=== PATIENT | male | born 1940 | race African-American/Black ===

== ENCOUNTER → 2019-12-18 11:30 | Day surgery (SDC) | payer MEDICARE, MEDICAID ==
--- NOTE | 2019-12-06 09:17 | HP ---
CC: Dr. Piero Yuan; Dr. Daniel Mckeon* UROLOGY PREOPERATIVE HISTORY AND PHYSICAL: DATE OF PLANNED ADMISSION AND SURGERY: 12/18/19 Please refer to the detailed history and physical by Dr. Yuan for this patient's admission scheduled on 12/18/19. This is the urology preoperative note. HISTORY OF PRESENT ILLNESS: Mr. Zaldivar is a 79-year-old male who is admitted by Dr. Yuan for right inguinal hernia repair and who has a symptomatic Left spermatocele, and will be undergoing a left spermatocelectomy at the same time by myself. The history and physical is dictated by Dr. Yuan's service. I have been following Mr. Zaldivar for many years because of an element of prostate enlargement and moderate PSA elevation. In 2007, because of a PSA of 6.4, he had a prostate biopsy, which was negative. He has been followed with periodic PSA's and they have been stable between 3 and 4. Rectal examination continued to show a moderately enlarged, but non-suspicious prostate. Over the last several years, he was noted to have a progressive enlargement of the left hemiscrotum. This was diagnosed as being secondary to a left spermatocele. It remained relatively stable and minimally symptomatic over the last 6 or 7 years until recently it became larger and symptomatic and started interfering with his physical activities. There is no history of any inguinal or scrotal trauma or surgery. The patient also developed an enlarging right inguinal hernia. The patient was evaluated by Dr. Yuan who scheduled him for right inguinal hernia repair. Because of the enlarging and symptomatic left spermatocele, left spermatocelectomy will be performed at the same time. PAST HISTORY: Otherwise negative. PAST MEDICAL HISTORY: As outlined in Dr. Yuan's note. The patient is hypertensive, maintained on lisinopril and on amlodipine. He is on simvastatin. ALLERGIES: He denies any allergies to medications. FAMILY HISTORY: Negative for prostate carcinoma. PHYSICAL EXAMINATION: GENERAL: He is a pleasant and healthy looking male. VITAL SIGNS: Blood pressure 120/80, pulse of 66. ABDOMEN: Exam of the abdomen is normal. He has no CVA tenderness. EXTERNAL GENITALIA: He has 12 cm left trans-illuminating scrotal swelling, consistent with either spermatocele or hydrocele. There is no left inguinal hernia noted. He has an indirect moderate size right inguinal hernia. RECTAL examination showed moderately enlarged, but non-suspicious prostate. IMPRESSION: 1. Right inguinal hernia. 2. Large left spermatocele/hydrocele. PLAN: Plan is for right inguinal hernia repair by Dr. Yuan and left spermatocelectomy by myself. I discussed the plan for spermatocelectomy with the patient. He understands that it is very common to have left scrotal enlargement for several weeks after the surgery. Some of the potential complications including hematoma and infection were discussed. All his questions were answered. [id number]/[facility] #: [id number] [facility]
[~2019-12-18 11:30] MED LIST: Buffered Lidocaine 1% SYRIN* 1 ML/SYRINGE INTRADERM ONE; Bupivacaine 0.25% SDV PF* 10 ML VIAL INJ ONE; Bupivacaine 0.5%* 50 ML MDV VIAL ONE; DiMENhydriNATE IV* 50 MG/ML VIAL IV PUSH PRN; EPHEDrine (Pressors)* 50 MG/ML VIAL ONE; Glycopyrrolate IV* 0.2 MG/ML 1 ML VIAL ONE; Lactated Ringers 1000 ML Bag* 1,000 ML IV SCH; Lidocaine 1% INJ* 10 MG/ML 30 ML SDV ONE; Lidocaine 1% w EPI 1:200,000* SDV 30 ML VIAL ONE; Lidocaine 2% PF * 5 ML VIAL ONE; Metoprolol Tartrate IV* 1 MG/ML 5 ML VIAL ONE; Naloxone* 0.4 MG/ML 1 ML VIAL IV PRN; Neostigmine Methylsulfate* 3 MG/3 ML SYRINGE ONE; Ondansetron INJ* 2 MG/ML VIAL ONE; Propofol* 10 MG/ML 20 ML BTL ONE; Rocuronium* 10 MG/ML VIAL ONE; ceFAZolin 2 GM PREMIX in ORs 2 GM/50 ML BAG ONE; fentaNYL* 50 MCG/ML 2 ML VIAL (100 MCG VIAL) IV PRN; fentaNYL* 50 MCG/ML 2 ML VIAL (100 MCG VIAL) ONE
--- NOTE | 2019-12-18 16:01 | OP ---
CC: Dr. Daniel Mckeon; Piero Yuan MD * DATE OF OPERATION: 12/18/19 - [facility] DATE OF : 40 SURGEON: Evert Mcghee MD RIGHT OF WAY CUTTER: Piero Yuan MD ANESTHESIOLOGIST: Dr. Gallegos. ANESTHESIA: General. PRE-OP DIAGNOSIS: Left spermatocele. POST-OP DIAGNOSIS: Left spermatocele. OPERATIVE PROCEDURE: Left spermatocelectomy. INDICATION FOR PROCEDURE: Mr. Zaldivar is a 79-year-old male who had a long history of left scrotal enlargement, which was diagnosed as a left spermatocele. The size of the spermatocele has recently gotten significantly larger, became more symptomatic interfering with his physical activities. Because of that finding, the symptomatic nature and the size of the spermatocele , surgical excision was advised and accepted. The patient also had a symptomatic direct right inguinal hernia. He will undergo a right inguinal herniorrhaphy by Dr. Yuan at the same time. Dr. Yuan will be dictating the operative note for the right inguinal herniorrhaphy. OPERATIVE FINDINGS: Exam under anesthesia again confirmed the presence of a 12 cm cystic mass in the left hemiscrotum. Upon left scrotal exploration, there was no hydrocele. There was a 12 cm left spermatocele. The spermatocele was arising from the globus major of the left epididymis. There was no inguinal hernia noted and no other pathology noted. The testicle was relatively small, there were no testicular masses. DESCRIPTION OF PROCEDURE: After successful general anesthesia, the patient was placed in the supine position and was prepped and draped for a left scrotal incision. A transverse incision was carried in the mid anterior left hemiscrotum. The incision was then deepened into the dartos muscle. The tunica vaginalis was identified and was dissected from the overlying scrotal wall and delivered through the incision. The tunica vaginalis was then opened and the spermatocele was identified. The spermatic cord structures were also identified and were carefully dissected, retracted, and preserved. The spermatocele was then dissected all the way to its origin from the epididymis. This was performed without rupturing the spermatocele. At that level, the connection between the epididymis and the spermatocele was tied with 4-0 Vicryl and the specimen was excised intact and sent for pathology. Careful hemostasis was then achieved. The tunica vaginalis was then everted and approximated to itself using running locking sutures of 4-0 Vicryl. After making sure there was very good hemostasis, the testis was replaced in the scrotal cavity. A Angelita drain was left in the scrotal cavity and brought out through a separate stab wound incision in the lower scrotum. The incision was then closed using running 4-0 Vicryl for the dartos muscle and the skin was closed using interrupted everting sutures of 4-0 chromic. A total of 10 cc of 0.5% Marcaine without epinephrine was used to infiltrate the incision for postoperative analgesia. The patient tolerated this procedure well. The blood loss was negligible. The specimen was left spermatocele and all the counts were correct. Dr. Yuan then proceeded with the right inguinal hernia repair and he will be dictating the operative report for that procedure. [id number]/[facility] #: [id number] [facility]
--- NOTE | 2019-12-18 16:19 | OP ---
Operative Report - Blank - Operative Report Date of Operation: 12/18/19 Note: OPERATIVE REPORT Pre-op: Right inguinal hernia Post-Op: Right direct inguinal hernia Procedure:Open repair with mesh of right direct inguinal hernia Surgeon: MD Lissy Asst: PRIMITIVO Garduno Anes: general with local , Dr. Mandujano and Dr. Gallegos IVF:1 l crystalloid EBL:min Specimen: none Drain: none Wound: 1 Findings: Right direct inguinal hernia To PACU
[2019-12-18 18:07] VITALS: BP 148/68
--- NOTE | 2019-12-18 20:25 | OP ---
CC: Dr. Evert Mcghee; Dr. Daniel Mckeon, [facility] * DATE OF OPERATION: 12/18/19 - [facility] DATE OF : 40 SURGEON: Piero Yuan MD FILTER BED PLACER: PRIMITIVO Lerma ANESTHESIOLOGISTS: Dr. Mandujano, as well as Dr. Gallegos. ANESTHESIA: General with local. PRE-OP DIAGNOSIS: Right inguinal hernia. POST-OP DIAGNOSIS: Right direct inguinal hernia. OPERATIVE PROCEDURE: Open repair with mesh of a right direct inguinal hernia. IV FLUIDS: 1 L of crystalloid. ESTIMATED BLOOD LOSS: Minimal. SPECIMENS: None. WOUND CLASSIFICATION: 1. COMPLICATIONS: None. DRAINS: None. FINDINGS: Direct inguinal hernia. DESCRIPTION OF PROCEDURE: Written informed consent was obtained, the right groin was marked with indelible ink, and preoperative antibiotics were administered. The patient was already in the operating room from excision of a left spermatocele by Dr. Mcghee. The right groin was prepped and draped in the usual sterile fashion. Time-out verification was completed. Marcaine 0.25% mixed with 1% lidocaine was infiltrated in the right groin and an oblique incision was made several fingerbreadths above the inguinal crease and carried down to Samira's fascia. The external oblique aponeurosis was identified as well as the external ring and this was opened in the direction of its fibers. Spermatic cord was identified as well as the inguinal floor and it was encircled with 1 quarter-inch Angelita drain. Careful evaluation revealed a direct space hernia somewhat in the lateral aspect of the direct space with fat that was herniating through, but a rather well-defined defect in the transversalis fascia of about 1.5 cm. This was easily reduced and closed with a running 3-0 Vicryl suture. Careful evaluation of the spermatic cord revealed no evidence of an indirect hernia sac. There was a cord lipoma which was excised at the internal ring. I did sacrifice the iliohypogastric nerve. Once this was complete, the ProGrip pre-cut Covidien mesh was then placed and sutured to the pubic tubercle with a horizontal mattress 0 Vicryl suture. This was then placed to cover the direct and indirect space with generous overlap and care taken with no wrinkling. It was sutured to the inguinal ligament in 2 places with 0 Vicryl suture as well as the conjoint tendon with an individual 0 Vicryl suture. Hemostasis was assured. The internal ring had been reconstructed nicely. The external oblique aponeurosis was then closed with a running 3-0 Vicryl suture. Samira's fascia was closed with a running 3-0 Vicryl suture. Skin was approximated with a subcuticular 4-0 Vicryl suture. Additional Marcaine was infiltrated. Steri- Strips and sterile dressings were applied. The patient tolerated the procedure well and was taken to the recovery room in stable condition. [id number]/[facility] #: [id number] [facility]
== END | disposition home or self-care (01) ==
LOC: OR 11:30
PROVIDERS: ATTEND Surgery
DX: K40.90 Unilateral inguinal hernia, without obstruction or gangrene, not specified as recurrent (principal); N43.41 Spermatocele of epididymis, single; I25.10 Atherosclerotic heart disease of native coronary artery without angina pectoris; Z95.1 Presence of aortocoronary bypass graft; I10 Essential (primary) hypertension; M19.90 Unspecified osteoarthritis, unspecified site; G51.0 Bell's palsy
CPT/HCPCS: 88304; C1781; J0690; J2001; J2405; J2704; J2710; J3010; J3490

== ENCOUNTER 2020-12-21 08:05 | Inpatient (IN) ==
[2020-12-21] MEDS ORDERED: NS 0.9% 1000 ml BAG 1,000 ML IV ONE (08:31)
[2020-12-21] MEDS ORDERED: Iodixanol (CONTRAST) 320 MG/ML 100 ML SDV IV ONE (08:44)
[2020-12-21 09:05] LABS: Hematocrit 33 % (42-52); Hemoglobin 10.8 g/dL (14.0-18.0); Mean Corpuscular HGB Conc 33 g/dL (31-36); Mean Corpuscular Hemoglobin 33 pg (27-31); Mean Corpuscular Volume 100 fL (80-94); Platelet Count 160 10^3/uL (150-450); Red Blood Count 3.25 10^6 /uL (4.18-5.48); Red Cell Distribution Width 16 % (10-15)
[2020-12-21 09:18] LABS: Activated Partial Thrombo Time 23.5 seconds (26.0-38.0); INR 1.13 (0.82-1.09)
[2020-12-21 09:22] LABS: Albumin 3.3 g/dL (3.2-5.2); Albumin/Globulin Ratio 1.5 (1-3); Calcium 7.9 mg/dL (8.6-10.3); EGFR African American 95.8 (>60); EGFR Non-African American 79.2 (>60); Globulin 2.2 g/dL (2-4); HDL Cholesterol 36.6 mg/dL; Potassium 3.5 mmol/L (3.5-5.0); Total Bilirubin 0.9 mg/dL (0.2-1.0); Total Protein 5.5 g/dL (6.4-8.9)
[2020-12-21 09:50] LABS: Troponin I 0.01 ng/mL (<0.03)
[2020-12-21 10:07] LABS: ABS Lymphocytes 0.8 10^3/ul (1.0-4.8); ABS Monocytes 0.4 10^3/ul (0-0.8); ABS Neutrophils 0.7 10^3/ul (1.5-7.7); Eosinophil % 1.7 %; Lymphocyte % 40.4 %; Nucleated Red Blood Cells % 0.2
[2020-12-21 12:03] LABS: Folate 7.28 ng/mL (>3.99)
[2020-12-21] MEDS: Enoxaparin 40 MG/0.4 ML SYR SUBCUT SCH (12:46)
[2020-12-21] MEDS ORDERED: NS 0.9% 1000 ml BAG 1,000 ML IV SCH (15:00)
[2020-12-21 18:45] LABS: Corrected Retic Count 0.6 % (0.5-1.5); Hematocrit for Retic CNT 36 % (42-52); Immature Retic Fraction 0.43; RBC Retic Count 3.58 10^6/uL (4.18-5.48)
[2020-12-21 20:51] LABS: Uric Acid 4.6 mg/dL (4.4-7.6)
[2020-12-22 05:56] LABS: ABS Eosinophils 0.1 10^3/ul (0-0.6); ABS Monocytes 0.5 10^3/ul (0-0.8); ABS Neutrophils 1.6 10^3/ul (1.5-7.7); Eosinophil % 1.9 %; Hematocrit 37 % (42-52); Hemoglobin 12.2 g/dL (14.0-18.0); Lymphocyte % 32.4 %; Mean Corpuscular HGB Conc 33 g/dL (31-36); Mean Corpuscular Hemoglobin 33 pg (27-31); Mean Corpuscular Volume 100 fL (80-94); Mean Platelet Volume 9.3 fL (7.4-10.4); Platelet Count 170 10^3/uL (150-450); Red Blood Count 3.69 10^6 /uL (4.18-5.48); Red Cell Distribution Width 16 % (10-15); White Blood Count 3.2 10^3/uL (3.5-10.8)
[2020-12-22 06:15] LABS: BUN/Creatinine Ratio 11.4 (8-20); Calcium 8.3 mg/dL (8.6-10.3); EGFR African American 114.2 (>60); EGFR Non-African American 94.4 (>60); Potassium 3.4 mmol/L (3.5-5.0)
[2020-12-22] MEDS: Cholecalciferol (VIT D3) 1,000 unit TAB PO SCH (09:23)
[2020-12-22] MEDS: Enoxaparin 40 MG/0.4 ML SYR SUBCUT SCH (10:23)
[2020-12-23] MEDS: Cholecalciferol (VIT D3) 1,000 unit TAB PO SCH (08:33)
[2020-12-23] MEDS: Enoxaparin 40 MG/0.4 ML SYR SUBCUT SCH (10:01)
[2020-12-23 13:42] VITALS: BP 114/47
[2020-12-24 15:42] LABS: Albumin/Globulin Ratio 1.04; Total Protein(PEP) 5.8 g/dL (6.3 - 7.9)
== END 2020-12-23 13:17 | DRG 65 ==
LOC: ED 08:05 → MEDTELE 10:47 → PMRU 12-23 14:04
PROVIDERS: ADMIT Hospitalist; ATTEND Student in an Organized Health Care Education/Training Program

== ENCOUNTER 2020-12-23 13:21 | Inpatient (IN) ==
[2020-12-23] MEDS ORDERED: Senna TAB 8.6 mg TAB PO PRN (16:45)
[2020-12-24] MEDS: Cholecalciferol (VIT D3) 1,000 unit TAB PO SCH (09:52)
[2020-12-24] MEDS: Enoxaparin 40 MG/0.4 ML SYR SUBCUT SCH (09:54)
[2020-12-25 07:16] LABS: ABS Eosinophils 0.1 10^3/ul (0-0.6); ABS Lymphocytes 0.9 10^3/ul (1.0-4.8); ABS Monocytes 0.4 10^3/ul (0-0.8); ABS Neutrophils 1.1 10^3/ul (1.5-7.7); Eosinophil % 2.7 %; Hematocrit 37 % (42-52); Hemoglobin 12.7 g/dL (14.0-18.0); Mean Corpuscular HGB Conc 35 g/dL (31-36); Mean Corpuscular Hemoglobin 34 pg (27-31); Mean Corpuscular Volume 99 fL (80-94); Mean Platelet Volume 9.1 fL (7.4-10.4); Nucleated Red Blood Cells % 0.2; Platelet Count 176 10^3/uL (150-450); Red Cell Distribution Width 16 % (10-15); White Blood Count 2.6 10^3/uL (3.5-10.8)
[2020-12-25 07:32] LABS: Albumin 3.5 g/dL (3.2-5.2); Albumin/Globulin Ratio 1.3 (1-3); BUN/Creatinine Ratio 14.7 (8-20); Calcium 8.6 mg/dL (8.6-10.3); EGFR African American 92.3 (>60); EGFR Non-African American 76.3 (>60); Globulin 2.6 g/dL (2-4); Potassium 3.8 mmol/L (3.5-5.0); Total Bilirubin 1.2 mg/dL (0.2-1.0); Total Protein 6.1 g/dL (6.4-8.9)
[2020-12-25] MEDS: Enoxaparin 40 MG/0.4 ML SYR SUBCUT SCH (08:19)
[2020-12-25] MEDS: Cholecalciferol (VIT D3) 1,000 unit TAB PO SCH (08:19)
[2020-12-26] MEDS: Cholecalciferol (VIT D3) 1,000 unit TAB PO SCH (08:50)
[2020-12-26] MEDS: Enoxaparin 40 MG/0.4 ML SYR SUBCUT SCH (08:51)
[2020-12-27] MEDS: Cholecalciferol (VIT D3) 1,000 unit TAB PO SCH (09:05)
[2020-12-27] MEDS: Enoxaparin 40 MG/0.4 ML SYR SUBCUT SCH (09:05)
[2020-12-28] MEDS: Cholecalciferol (VIT D3) 1,000 unit TAB PO SCH (07:32)
[2020-12-28] MEDS: Enoxaparin 40 MG/0.4 ML SYR SUBCUT SCH (12:32)
[2020-12-29] MEDS: Cholecalciferol (VIT D3) 1,000 unit TAB PO SCH (07:47)
[2020-12-29] MEDS: Enoxaparin 40 MG/0.4 ML SYR SUBCUT SCH (11:22)
[2020-12-30] MEDS: Enoxaparin 40 MG/0.4 ML SYR SUBCUT SCH (09:31)
[2020-12-30] MEDS: Cholecalciferol (VIT D3) 1,000 unit TAB PO SCH (09:33)
[2020-12-31] MEDS: Cholecalciferol (VIT D3) 1,000 unit TAB PO SCH (10:09)
[2020-12-31] MEDS: Enoxaparin 40 MG/0.4 ML SYR SUBCUT SCH (10:09)
[2021-01-01 07:26] LABS: ABS Eosinophils 0.1 10^3/ul (0-0.6); ABS Lymphocytes 0.8 10^3/ul (1.0-4.8); ABS Monocytes 0.5 10^3/ul (0-0.8); ABS Neutrophils 1.3 10^3/ul (1.5-7.7); Eosinophil % 2.5 %; Hematocrit 36 % (42-52); Lymphocyte % 29.8 %; Mean Corpuscular HGB Conc 33 g/dL (31-36); Mean Corpuscular Hemoglobin 33 pg (27-31); Mean Corpuscular Volume 100 fL (80-94); Mean Platelet Volume 8.9 fL (7.4-10.4); Nucleated Red Blood Cells % 0.1; Platelet Count 191 10^3/uL (150-450); Red Blood Count 3.59 10^6 /uL (4.18-5.48); Red Cell Distribution Width 15 % (10-15); White Blood Count 2.7 10^3/uL (3.5-10.8)
[2021-01-01 07:43] LABS: Albumin 3.4 g/dL (3.2-5.2); Albumin/Globulin Ratio 1.5 (1-3); BUN/Creatinine Ratio 12.4 (8-20); Calcium 8.4 mg/dL (8.6-10.3); EGFR African American 99.5 (>60); EGFR Non-African American 82.2 (>60); Globulin 2.3 g/dL (2-4); Total Bilirubin 0.7 mg/dL (0.2-1.0); Total Protein 5.7 g/dL (6.4-8.9)
[2021-01-01] MEDS: Cholecalciferol (VIT D3) 1,000 unit TAB PO SCH (09:16)
[2021-01-01] MEDS: Enoxaparin 40 MG/0.4 ML SYR SUBCUT SCH (09:18)
[2021-01-02] MEDS: Enoxaparin 40 MG/0.4 ML SYR SUBCUT SCH (10:58)
[2021-01-02] MEDS: Cholecalciferol (VIT D3) 1,000 unit TAB PO SCH (10:58)
[2021-01-03] MEDS: Cholecalciferol (VIT D3) 1,000 unit TAB PO SCH (09:36)
[2021-01-03] MEDS: Enoxaparin 40 MG/0.4 ML SYR SUBCUT SCH (09:37)
[2021-01-04] MEDS: Cholecalciferol (VIT D3) 1,000 unit TAB PO SCH (07:46)
[2021-01-04] MEDS: Enoxaparin 40 MG/0.4 ML SYR SUBCUT SCH (10:13)
[2021-01-05] MEDS: Cholecalciferol (VIT D3) 1,000 unit TAB PO SCH (10:06)
[2021-01-05] MEDS: Enoxaparin 40 MG/0.4 ML SYR SUBCUT SCH (10:12)
[2021-01-06] MEDS: Cholecalciferol (VIT D3) 1,000 unit TAB PO SCH (08:10)
[2021-01-06] MEDS: Enoxaparin 40 MG/0.4 ML SYR SUBCUT SCH (10:55)
[2021-01-07] MEDS: Enoxaparin 40 MG/0.4 ML SYR SUBCUT SCH (09:49)
[2021-01-07] MEDS: Cholecalciferol (VIT D3) 1,000 unit TAB PO SCH (09:49)
[2021-01-08 06:32] LABS: ABS Eosinophils 0.1 10^3/ul (0-0.6); ABS Lymphocytes 1.1 10^3/ul (1.0-4.8); ABS Monocytes 0.5 10^3/ul (0-0.8); ABS Neutrophils 1.4 10^3/ul (1.5-7.7); Eosinophil % 2.7 %; Hematocrit 35 % (42-52); Hemoglobin 11.8 g/dL (14.0-18.0); Lymphocyte % 35.6 %; Mean Corpuscular HGB Conc 34 g/dL (31-36); Mean Corpuscular Hemoglobin 34 pg (27-31); Mean Corpuscular Volume 99 fL (80-94); Mean Platelet Volume 9.1 fL (7.4-10.4); Nucleated Red Blood Cells % 0.1; Platelet Count 184 10^3/uL (150-450); Red Cell Distribution Width 15 % (10-15)
[2021-01-08 06:43] LABS: Albumin 3.3 g/dL (3.2-5.2); Albumin/Globulin Ratio 1.4 (1-3); BUN/Creatinine Ratio 13.3 (8-20); Calcium 8.4 mg/dL (8.6-10.3); EGFR African American 98.2 (>60); EGFR Non-African American 81.2 (>60); Globulin 2.3 g/dL (2-4); Potassium 3.9 mmol/L (3.5-5.0); Total Bilirubin 0.7 mg/dL (0.2-1.0); Total Protein 5.6 g/dL (6.4-8.9)
[2021-01-08] MEDS: Cholecalciferol (VIT D3) 1,000 unit TAB PO SCH (08:39)
[2021-01-08] MEDS: Enoxaparin 40 MG/0.4 ML SYR SUBCUT SCH (08:53)
[2021-01-09] MEDS: Cholecalciferol (VIT D3) 1,000 unit TAB PO SCH (09:05)
[2021-01-09] MEDS: Enoxaparin 40 MG/0.4 ML SYR SUBCUT SCH (09:06)
[2021-01-10] MEDS: Enoxaparin 40 MG/0.4 ML SYR SUBCUT SCH (09:18)
[2021-01-10] MEDS: Cholecalciferol (VIT D3) 1,000 unit TAB PO SCH (09:19)
[2021-01-10 14:02] LABS: Urine Appearance Clear; Urine Bilirubin Negative (Negative); Urine Blood Negative (Negative); Urine Color Yellow; Urine Glucose Negative (Negative); Urine Ketones Negative (Negative); Urine Nitrite Negative (Negative); Urine Protein Negative (Negative); Urine Urobilinogen Negative (Negative)
[2021-01-11 06:32] LABS: BUN/Creatinine Ratio 13.5 (8-20); Calcium 8.6 mg/dL (8.6-10.3); EGFR African American 83.1 (>60); EGFR Non-African American 68.7 (>60); Potassium 4.2 mmol/L (3.5-5.0)
[2021-01-11] MEDS: Enoxaparin 40 MG/0.4 ML SYR SUBCUT SCH (10:08)
[2021-01-11] MEDS: Cholecalciferol (VIT D3) 1,000 unit TAB PO SCH (10:08)
[2021-01-12] MEDS: Cholecalciferol (VIT D3) 1,000 unit TAB PO SCH (08:55)
[2021-01-12] MEDS: Enoxaparin 40 MG/0.4 ML SYR SUBCUT SCH (08:56)
[2021-01-13] MEDS: Cholecalciferol (VIT D3) 1,000 unit TAB PO SCH (09:08)
[2021-01-13] MEDS: Enoxaparin 40 MG/0.4 ML SYR SUBCUT SCH (09:08)
[2021-01-14] MEDS: Cholecalciferol (VIT D3) 1,000 unit TAB PO SCH (09:43)
[2021-01-14] MEDS: Enoxaparin 40 MG/0.4 ML SYR SUBCUT SCH (09:44)
[2021-01-15] MEDS: Cholecalciferol (VIT D3) 1,000 unit TAB PO SCH (07:31)
[2021-01-15 08:12] LABS: Hematocrit 39 % (42-52); Hemoglobin 13.1 g/dL (14.0-18.0); Mean Corpuscular HGB Conc 33 g/dL (31-36); Mean Corpuscular Hemoglobin 33 pg (27-31); Mean Corpuscular Volume 100 fL (80-94); Mean Platelet Volume 9.1 fL (7.4-10.4); Platelet Count 209 10^3/uL (150-450); Red Blood Count 3.94 10^6 /uL (4.18-5.48); Red Cell Distribution Width 15 % (10-15); White Blood Count 2.4 10^3/uL (3.5-10.8)
[2021-01-15 08:20] LABS: ABS Neutrophils 0.9 10^3/ul (1.5-7.7)
[2021-01-15 08:24] LABS: Albumin 3.8 g/dL (3.2-5.2); Albumin/Globulin Ratio 1.4 (1-3); BUN/Creatinine Ratio 11.8 (8-20); Calcium 9.2 mg/dL (8.6-10.3); EGFR African American 94.6 (>60); EGFR Non-African American 78.2 (>60); Globulin 2.7 g/dL (2-4); Potassium 3.9 mmol/L (3.5-5.0); Total Protein 6.5 g/dL (6.4-8.9)
[2021-01-15 09:28] LABS: ABS Eosinophils 0.1 10^3/ul (0-0.6); ABS Lymphocytes 0.9 10^3/ul (1.0-4.8); ABS Monocytes 0.5 10^3/ul (0-0.8); Lymphocyte % 38.4 %; Nucleated Red Blood Cells % 0.1
[2021-01-15] MEDS: Enoxaparin 40 MG/0.4 ML SYR SUBCUT SCH (11:13)
[2021-01-16] MEDS: Cholecalciferol (VIT D3) 1,000 unit TAB PO SCH (09:40)
[2021-01-16] MEDS: Enoxaparin 40 MG/0.4 ML SYR SUBCUT SCH (09:40)
[2021-01-17 06:34] LABS: ABS Eosinophils 0.1 10^3/ul (0-0.6); ABS Monocytes 0.5 10^3/ul (0-0.8); ABS Neutrophils 1.1 10^3/ul (1.5-7.7); Eosinophil % 2.7 %; Hematocrit 35 % (42-52); Hemoglobin 11.8 g/dL (14.0-18.0); Lymphocyte % 37.4 %; Mean Corpuscular HGB Conc 34 g/dL (31-36); Mean Corpuscular Hemoglobin 34 pg (27-31); Mean Corpuscular Volume 99 fL (80-94); Nucleated Red Blood Cells % 0.1; Platelet Count 181 10^3/uL (150-450); Red Blood Count 3.51 10^6 /uL (4.18-5.48); Red Cell Distribution Width 15 % (10-15); White Blood Count 2.8 10^3/uL (3.5-10.8)
[2021-01-17] MEDS: Cholecalciferol (VIT D3) 1,000 unit TAB PO SCH (09:36)
[2021-01-17] MEDS: Enoxaparin 40 MG/0.4 ML SYR SUBCUT SCH (09:40)
[2021-01-18] MEDS: Enoxaparin 40 MG/0.4 ML SYR SUBCUT SCH (09:35)
[2021-01-18] MEDS: Cholecalciferol (VIT D3) 1,000 unit TAB PO SCH (09:35)
[2021-01-19] MEDS: Cholecalciferol (VIT D3) 1,000 unit TAB PO SCH (08:36)
[2021-01-19] MEDS: Enoxaparin 40 MG/0.4 ML SYR SUBCUT SCH (08:37)
[2021-01-20] MEDS: Cholecalciferol (VIT D3) 1,000 unit TAB PO SCH (08:45)
[2021-01-20] MEDS: Enoxaparin 40 MG/0.4 ML SYR SUBCUT SCH (08:46)
[2021-01-21] MEDS: Cholecalciferol (VIT D3) 1,000 unit TAB PO SCH (10:27)
[2021-01-21] MEDS: Enoxaparin 40 MG/0.4 ML SYR SUBCUT SCH (10:45)
[2021-01-22 05:54] LABS: Hematocrit 37 % (42-52); Hemoglobin 12.1 g/dL (14.0-18.0); Mean Corpuscular HGB Conc 33 g/dL (31-36); Mean Corpuscular Hemoglobin 33 pg (27-31); Mean Corpuscular Volume 100 fL (80-94); Mean Platelet Volume 9.1 fL (7.4-10.4); Platelet Count 179 10^3/uL (150-450); Red Blood Count 3.64 10^6 /uL (4.18-5.48); Red Cell Distribution Width 15 % (10-15); White Blood Count 2.3 10^3/uL (3.5-10.8)
[2021-01-22 06:12] VITALS: BP 149/81
[2021-01-22 06:14] LABS: Albumin 3.4 g/dL (3.2-5.2); Albumin/Globulin Ratio 1.4 (1-3); Calcium 8.6 mg/dL (8.6-10.3); EGFR African American 99.5 (>60); EGFR Non-African American 82.2 (>60); Globulin 2.5 g/dL (2-4); Potassium 3.7 mmol/L (3.5-5.0); Total Bilirubin 0.8 mg/dL (0.2-1.0); Total Protein 5.9 g/dL (6.4-8.9)
[2021-01-22 09:00] LABS: ABS Eosinophils 0.1 10^3/ul (0-0.6); ABS Monocytes 0.5 10^3/ul (0-0.8); ABS Neutrophils 0.7 10^3/ul (1.5-7.7); Eosinophil % 3.4 %; Lymphocyte % 42.2 %
[2021-01-22] MEDS: Cholecalciferol (VIT D3) 1,000 unit TAB PO SCH (09:24)
== END 2021-01-22 12:05 | disposition home health service (06) | DRG 57 ==
LOC: PMRU 14:55
PROVIDERS: ADMIT Physical Medicine & Rehabilitation; ATTEND Physical Medicine & Rehabilitation

== ENCOUNTER 2021-07-10 12:27 | Inpatient (IN) ==
[2021-07-10 15:59] LABS: Hematocrit 39 % (42-52); Mean Corpuscular HGB Conc 34 g/dL (31-36); Mean Corpuscular Hemoglobin 34 pg (27-31); Mean Corpuscular Volume 101 fL (80-94); Red Blood Count 3.81 10^6 /uL (4.18-5.48); Red Cell Distribution Width 16 % (10-15); White Blood Count 5.8 10^3/uL (3.5-10.8)
[2021-07-10 16:04] LABS: Activated Partial Thrombo Time 22.2 seconds (26.0-38.0); INR 1.04 (0.86-1.15)
[2021-07-10 16:15] LABS: ABS Monocytes 0.3 10^3/ul (0-0.8); ABS Neutrophils 4.4 10^3/ul (1.5-7.7); Eosinophil % 0.6 %; Lymphocyte % 17.7 %; Mean Platelet Volume 9.8 fL (7.4-10.4); Nucleated Red Blood Cells % 0.1; Platelet Count 177 10^3/uL (150-450)
[2021-07-10 16:19] LABS: ALT 20 U/L (7-52); Albumin 4.5 g/dL (3.2-5.2); Albumin/Globulin Ratio 1.6 (1-3); Alkaline Phosphatase 63 U/L (35-149); Blood Urea Nitrogen 9 mg/dL (6-24); CO2 Carbon Dioxide 28 mmol/L (22-32); Calcium 9.1 mg/dL (8.6-10.3); Chloride 104 mmol/L (101-111); Globulin 2.9 g/dL (2-4); Glucose 91 mg/dL (70-100); Sodium 140 mmol/L (135-145); Total Protein 7.4 g/dL (6.4-8.9)
[2021-07-10 16:20] LABS: Troponin I 0.01 ng/mL (<0.03)
[2021-07-10 16:40] LABS: Anion Gap 8 mmol/L (2-11)
[2021-07-10] MEDS ORDERED: Morphine 2 MG/ML SYRINGE IV SCH (18:00)
[2021-07-10] MEDS ORDERED: Morphine 2 MG/ML SYRINGE IV PRN (18:24)
[2021-07-10 19:04] LABS: Rapid COVID-19 Molecular Undetected (Undetected)
[2021-07-10 19:28] LABS: Urine Appearance Clear; Urine Bilirubin Negative (Negative); Urine Blood Negative (Negative); Urine Color Yellow; Urine Glucose Negative (Negative); Urine Ketones 1+ (Negative); Urine Nitrite Negative (Negative); Urine Protein Negative (Negative); Urine Specific Gravity 1.013 (1.002-1.030); Urine Urobilinogen Positive (Negative)
[2021-07-10] MEDS: Heparin 5000 UNITS/ML 1 mL VIAL SUBCUT SCH (23:02)
[2021-07-11] MEDS: Heparin 5000 UNITS/ML 1 mL VIAL SUBCUT SCH (05:13)
[2021-07-11] MEDS ORDERED: Lidocaine 1% w EPI 1:100,000 MDV 20 ML VIAL ONE (07:32)
[2021-07-11] MEDS ORDERED: Propofol 10 MG/ML 20 ML BTL ONE (08:23)
[2021-07-11] MEDS ORDERED: Phenylephrine IV 10 MG/ML 1 ml VIAL ONE (08:23)
[2021-07-11] MEDS ORDERED: Rocuronium 50 mg VIAL 10 mg/ml 5 ml VIAL (50 mg) ONE ×2 (08:26→09:18)
[2021-07-11] MEDS ORDERED: fentaNYL 100 mcg/2 ml 50 MCG/ML VIAL ONE ×2 (08:26→09:17)
[2021-07-11] MEDS ORDERED: ceFAZolin VIAL 2 GM in NS 0.9% 100 ml BAG 100 ML IVPB ONE (08:37)
[2021-07-11] MEDS ORDERED: ceFAZolin VIAL VIAL ONE (09:19)
[2021-07-11] MEDS ORDERED: HYDROcodone/ACETAMIN 5/325 mg TAB PO PRN ×2 (12:13)
[2021-07-11] MEDS ORDERED: Senna TAB 8.6 mg TAB PO PRN (12:48)
[2021-07-11] MEDS ORDERED: Magnesium Hydroxide LIQ 30 ML UDC PO PRN (12:48)
[2021-07-11 13:00] LABS: AST Redraw 17 U/L (13-39); Potassium Redraw 3.7 mmol/L (3.5-5.0)
[2021-07-11] MEDS: Cholecalciferol (VIT D3) 400 units TAB PO SCH (13:54)
[2021-07-11 13:55] LABS: Vitamin B12 > 1450 pg/mL (180-914)
[2021-07-11] MEDS: ceFAZolin 1 GM X 3 DOSES POST-OP Q8H (AddVan) IVPB SCH (16:49)
[2021-07-12] MEDS: ceFAZolin 1 GM X 3 DOSES POST-OP Q8H (AddVan) IVPB SCH ×2 (02:01→10:52)
[2021-07-12 04:46] LABS: ABS Eosinophils 0.1 10^3/ul (0-0.6); ABS Lymphocytes 0.5 10^3/ul (1.0-4.8); ABS Monocytes 0.4 10^3/ul (0-0.8); ABS Neutrophils 3.5 10^3/ul (1.5-7.7); Eosinophil % 2.6 %; Hematocrit 28 % (42-52); Hemoglobin 9.4 g/dL (14.0-18.0); Lymphocyte % 10.3 %; Mean Corpuscular HGB Conc 34 g/dL (31-36); Mean Corpuscular Hemoglobin 34 pg (27-31); Mean Corpuscular Volume 101 fL (80-94); Mean Platelet Volume 9.2 fL (7.4-10.4); Nucleated Red Blood Cells % 0.1; Platelet Count 107 10^3/uL (150-450); Red Blood Count 2.74 10^6 /uL (4.18-5.48); Red Cell Distribution Width 16 % (10-15); White Blood Count 4.6 10^3/uL (3.5-10.8)
[2021-07-12 05:03] LABS: Calcium 7.8 mg/dL (8.6-10.3); Magnesium 1.9 mg/dL (1.9-2.7); Potassium 3.7 mmol/L (3.5-5.0)
[2021-07-12] MEDS: Cholecalciferol (VIT D3) 400 units TAB PO SCH (10:51)
[2021-07-12] MEDS: Enoxaparin 30 MG/0.3 ML SYR SUBCUT SCH (10:53)
[2021-07-12 11:07] LABS: Vitamin D Total 25(OH) 54.2 ng/mL (20-50)
[2021-07-12 16:11] LABS: Calcium 7.9 mg/dL (8.6-10.3); Potassium 3.7 mmol/L (3.5-5.0)
[2021-07-13 05:34] LABS: ABS Eosinophils 0.2 10^3/ul (0-0.6); ABS Lymphocytes 0.6 10^3/ul (1.0-4.8); ABS Monocytes 0.5 10^3/ul (0-0.8); ABS Neutrophils 2.2 10^3/ul (1.5-7.7); Eosinophil % 4.3 %; Hematocrit 27 % (42-52); Lymphocyte % 16.3 %; Mean Corpuscular HGB Conc 34 g/dL (31-36); Mean Corpuscular Hemoglobin 34 pg (27-31); Mean Corpuscular Volume 100 fL (80-94); Mean Platelet Volume 9.9 fL (7.4-10.4); Platelet Count 110 10^3/uL (150-450); Red Blood Count 2.65 10^6 /uL (4.18-5.48); Red Cell Distribution Width 16 % (10-15); White Blood Count 3.5 10^3/uL (3.5-10.8)
[2021-07-13 05:53] LABS: Calcium 8.1 mg/dL (8.6-10.3); Potassium 3.8 mmol/L (3.5-5.0)
[2021-07-13 08:05] VITALS: BP 126/69
[2021-07-13] MEDS: Cholecalciferol (VIT D3) 400 units TAB PO SCH (08:32)
[2021-07-13] MEDS: Enoxaparin 30 MG/0.3 ML SYR SUBCUT SCH (08:34)
== END 2021-07-13 09:20 | DRG 481 ==
LOC: ED 12:27 → SSU 19:31 → SUATTDRO 19:31 → SSU 19:39
PROVIDERS: ADMIT Internal Medicine; ATTEND Internal Medicine

== ENCOUNTER 2021-07-13 07:30 | Inpatient (IN) ==
[2021-07-13] MEDS ORDERED: Magnesium Hydroxide LIQ 30 ML UDC PO PRN (11:55)
[2021-07-13] MEDS ORDERED: Senna TAB 8.6 mg TAB PO PRN (11:55)
[2021-07-13] MEDS ORDERED: HYDROcodone/ACETAMIN 5/325 mg TAB PO PRN (12:08)
[2021-07-14 07:16] LABS: ABS Eosinophils 0.2 10^3/ul (0-0.6); ABS Lymphocytes 0.6 10^3/ul (1.0-4.8); ABS Monocytes 0.5 10^3/ul (0-0.8); ABS Neutrophils 1.8 10^3/ul (1.5-7.7); Eosinophil % 5.5 %; Hematocrit 26 % (42-52); Hemoglobin 8.9 g/dL (14.0-18.0); Mean Corpuscular HGB Conc 35 g/dL (31-36); Mean Corpuscular Hemoglobin 35 pg (27-31); Mean Corpuscular Volume 100 fL (80-94); Mean Platelet Volume 9.6 fL (7.4-10.4); Nucleated Red Blood Cells % 0.1; Platelet Count 129 10^3/uL (150-450); Red Blood Count 2.56 10^6 /uL (4.18-5.48); Red Cell Distribution Width 15 % (10-15)
[2021-07-14 07:32] LABS: Albumin/Globulin Ratio 1.2 (1-3); Calcium 8.3 mg/dL (8.6-10.3); Globulin 2.6 g/dL (2-4); Potassium 3.8 mmol/L (3.5-5.0); Total Bilirubin 1.1 mg/dL (0.2-1.0); Total Protein 5.6 g/dL (6.4-8.9)
[2021-07-14] MEDS: Cholecalciferol (VIT D3) 1,000 unit TAB PO SCH (08:06)
[2021-07-14] MEDS: Enoxaparin 30 MG/0.3 ML SYR SUBCUT SCH (08:07)
[2021-07-15] MEDS: Cholecalciferol (VIT D3) 1,000 unit TAB PO SCH (08:37)
[2021-07-15] MEDS: Aspirin EC 81 mg TAB.EC (enteric coated) PO SCH (08:37)
[2021-07-15] MEDS: Enoxaparin 30 MG/0.3 ML SYR SUBCUT SCH (08:40)
[2021-07-16] MEDS: Enoxaparin 30 MG/0.3 ML SYR SUBCUT SCH (08:17)
[2021-07-16] MEDS: Aspirin EC 81 mg TAB.EC (enteric coated) PO SCH (08:19)
[2021-07-16] MEDS: Cholecalciferol (VIT D3) 1,000 unit TAB PO SCH (08:19)
[2021-07-17] MEDS: Enoxaparin 30 MG/0.3 ML SYR SUBCUT SCH (08:56)
[2021-07-17] MEDS: Cholecalciferol (VIT D3) 1,000 unit TAB PO SCH (08:56)
[2021-07-17] MEDS: Aspirin EC 81 mg TAB.EC (enteric coated) PO SCH (08:56)
[2021-07-18] MEDS: Aspirin EC 81 mg TAB.EC (enteric coated) PO SCH (08:55)
[2021-07-18] MEDS: Cholecalciferol (VIT D3) 1,000 unit TAB PO SCH (08:55)
[2021-07-18] MEDS: Enoxaparin 30 MG/0.3 ML SYR SUBCUT SCH (08:56)
[2021-07-19] MEDS: Enoxaparin 30 MG/0.3 ML SYR SUBCUT SCH (08:40)
[2021-07-19] MEDS: Aspirin EC 81 mg TAB.EC (enteric coated) PO SCH (08:40)
[2021-07-19] MEDS: Cholecalciferol (VIT D3) 1,000 unit TAB PO SCH (08:40)
[2021-07-20] MEDS: Aspirin EC 81 mg TAB.EC (enteric coated) PO SCH (08:18)
[2021-07-20] MEDS: Enoxaparin 30 MG/0.3 ML SYR SUBCUT SCH (08:18)
[2021-07-20] MEDS: Cholecalciferol (VIT D3) 1,000 unit TAB PO SCH (08:18)
[2021-07-21 07:26] LABS: ABS Eosinophils 0.1 10^3/ul (0-0.6); ABS Lymphocytes 0.8 10^3/ul (1.0-4.8); ABS Monocytes 0.6 10^3/ul (0-0.8); ABS Neutrophils 2.2 10^3/ul (1.5-7.7); Eosinophil % 2.3 %; Hematocrit 26 % (42-52); Hemoglobin 8.8 g/dL (14.0-18.0); Lymphocyte % 22.2 %; Mean Corpuscular HGB Conc 34 g/dL (31-36); Mean Corpuscular Hemoglobin 34 pg (27-31); Mean Corpuscular Volume 101 fL (80-94); Mean Platelet Volume 8.3 fL (7.4-10.4); Nucleated Red Blood Cells % 0.1; Platelet Count 316 10^3/uL (150-450); Red Blood Count 2.58 10^6 /uL (4.18-5.48); Red Cell Distribution Width 16 % (10-15); White Blood Count 3.8 10^3/uL (3.5-10.8)
[2021-07-21 07:46] LABS: Albumin 3.2 g/dL (3.2-5.2); Albumin/Globulin Ratio 1.3 (1-3); Calcium 8.4 mg/dL (8.6-10.3); Globulin 2.5 g/dL (2-4); Potassium 4.1 mmol/L (3.5-5.0); Total Bilirubin 0.9 mg/dL (0.2-1.0); Total Protein 5.7 g/dL (6.4-8.9)
[2021-07-21] MEDS: Aspirin EC 81 mg TAB.EC (enteric coated) PO SCH (08:41)
[2021-07-21] MEDS: Enoxaparin 30 MG/0.3 ML SYR SUBCUT SCH (08:41)
[2021-07-21] MEDS: Cholecalciferol (VIT D3) 1,000 unit TAB PO SCH (08:41)
[2021-07-22] MEDS: Cholecalciferol (VIT D3) 1,000 unit TAB PO SCH (08:12)
[2021-07-22] MEDS: Aspirin EC 81 mg TAB.EC (enteric coated) PO SCH (08:12)
[2021-07-22] MEDS: Enoxaparin 30 MG/0.3 ML SYR SUBCUT SCH (08:14)
[2021-07-23] MEDS: Cholecalciferol (VIT D3) 1,000 unit TAB PO SCH (09:45)
[2021-07-23] MEDS: Aspirin EC 81 mg TAB.EC (enteric coated) PO SCH (09:45)
[2021-07-23] MEDS: Enoxaparin 30 MG/0.3 ML SYR SUBCUT SCH (09:46)
[2021-07-24] MEDS: Aspirin EC 81 mg TAB.EC (enteric coated) PO SCH (10:38)
[2021-07-24] MEDS: Cholecalciferol (VIT D3) 1,000 unit TAB PO SCH (10:38)
[2021-07-24] MEDS: Enoxaparin 30 MG/0.3 ML SYR SUBCUT SCH (10:39)
[2021-07-25] MEDS: Cholecalciferol (VIT D3) 1,000 unit TAB PO SCH (09:32)
[2021-07-25] MEDS: Enoxaparin 30 MG/0.3 ML SYR SUBCUT SCH (09:32)
[2021-07-25] MEDS: Aspirin EC 81 mg TAB.EC (enteric coated) PO SCH (09:32)
[2021-07-26] MEDS: Aspirin EC 81 mg TAB.EC (enteric coated) PO SCH (08:26)
[2021-07-26] MEDS: Cholecalciferol (VIT D3) 1,000 unit TAB PO SCH (08:28)
[2021-07-26] MEDS: Enoxaparin 30 MG/0.3 ML SYR SUBCUT SCH (09:42)
[2021-07-27 06:51] VITALS: BP 147/78
[2021-07-27] MEDS: Cholecalciferol (VIT D3) 1,000 unit TAB PO SCH (08:07)
[2021-07-27] MEDS: Aspirin EC 81 mg TAB.EC (enteric coated) PO SCH (08:08)
[2021-07-27] MEDS: Enoxaparin 30 MG/0.3 ML SYR SUBCUT SCH (08:18)
== END 2021-07-27 12:31 | disposition home or self-care (01) | DRG 561 ==
LOC: PMRU 10:03
PROVIDERS: ADMIT Physical Medicine & Rehabilitation; ATTEND Physical Medicine & Rehabilitation

== ENCOUNTER 2021-10-28 15:58 | Inpatient (IN) ==
[2021-10-28 17:42] LABS: ABS Lymphocytes 0.2 10^3/ul (1.0-4.8); ABS Monocytes 0.5 10^3/ul (0-0.8); ABS Neutrophils 3.6 10^3/ul (1.5-7.7); Eosinophil % 0.1 %; Hematocrit 36 % (42-52); Hemoglobin 11.9 g/dL (14.0-18.0); Lymphocyte % 5.5 %; Mean Corpuscular HGB Conc 33 g/dL (31-36); Mean Corpuscular Hemoglobin 33 pg (27-31); Mean Corpuscular Volume 99 fL (80-94); Mean Platelet Volume 10.3 fL (7.4-10.4); Nucleated Red Blood Cells % 0.1; Platelet Count 126 10^3/uL (150-450); Red Blood Count 3.62 10^6 /uL (4.18-5.48); Red Cell Distribution Width 16 % (10-15); White Blood Count 4.4 10^3/uL (3.5-10.8)
[2021-10-28 17:50] LABS: Urine Appearance Clear; Urine Bilirubin Negative (Negative); Urine Blood Negative (Negative); Urine Color Yellow; Urine Glucose Negative (Negative); Urine Ketones Trace (Negative); Urine Nitrite Negative (Negative); Urine Protein 1+(30 mg/dL) (Negative); Urine Specific Gravity 1.017 (1.002-1.030); Urine Urobilinogen Negative (Negative)
[2021-10-28 17:52] LABS: Urine Bacteria Absent (Absent); Urine Red Blood Cell 2+(6-10/hpf) (Absent); Urine White Blood Cell Trace(0-5/hpf) (Absent)
[2021-10-28 17:59] LABS: Albumin/Globulin Ratio 1.5 (1-3); Calcium 8.9 mg/dL (8.6-10.3); Globulin 2.6 g/dL (2-4); Potassium 4.2 mmol/L (3.5-5.0); Total Bilirubin 1.1 mg/dL (0.2-1.0); Total Protein 6.6 g/dL (6.4-8.9); eGFR CKD-EPI 83.6 (>60)
[2021-10-28] MEDS ORDERED: Iohexol 350 (CONTRAST) 500 ML MDV IV ONE (18:24)
[2021-10-29] MEDS: Enoxaparin 40 MG/0.4 ML SYR SUBCUT SCH (07:45)
[2021-10-29 07:46] LABS: Hematocrit 34 % (42-52); Hemoglobin 11.4 g/dL (14.0-18.0); Mean Corpuscular HGB Conc 33 g/dL (31-36); Mean Corpuscular Hemoglobin 33 pg (27-31); Mean Corpuscular Volume 98 fL (80-94); Mean Platelet Volume 10.4 fL (7.4-10.4); Platelet Count 117 10^3/uL (150-450); Red Cell Distribution Width 16 % (10-15); White Blood Count 2.4 10^3/uL (3.5-10.8)
[2021-10-29 08:22] LABS: Calcium 8.6 mg/dL (8.6-10.3); Magnesium 1.8 mg/dL (1.9-2.7); eGFR CKD-EPI 76.5 (>60)
[2021-10-29] MEDS: Cholecalciferol (VIT D3) 1,000 unit TAB PO SCH (08:49)
[2021-10-29] MEDS ORDERED: Aspirin EC 81 mg TAB.EC (enteric coated) PO SCH (09:00)
[2021-10-29] MEDS ORDERED: Magnesium Sulfate 2 gm BAG 2 GM/50 ML BAG IVPB ONE (17:27)
[2021-10-30] MEDS: Enoxaparin 40 MG/0.4 ML SYR SUBCUT SCH (05:39)
[2021-10-30] MEDS: Aspirin EC 81 mg TAB.EC (enteric coated) PO SCH (09:51)
[2021-10-30] MEDS: Cholecalciferol (VIT D3) 1,000 unit TAB PO SCH (09:51)
[2021-10-30] MEDS ORDERED: Ondansetron 4 mg VIAL 2 MG/ML 2 ml VIAL IV PRN (12:28)
[2021-10-31] MEDS: Enoxaparin 40 MG/0.4 ML SYR SUBCUT SCH (06:02)
[2021-10-31 08:04] LABS: Hematocrit 34 % (42-52); Hemoglobin 11.8 g/dL (14.0-18.0); Mean Corpuscular HGB Conc 35 g/dL (31-36); Mean Corpuscular Hemoglobin 33 pg (27-31); Mean Corpuscular Volume 96 fL (80-94); Platelet Count 109 10^3/uL (150-450); Red Blood Count 3.58 10^6 /uL (4.18-5.48); Red Cell Distribution Width 15 % (10-15); White Blood Count 1.9 10^3/uL (3.5-10.8)
[2021-10-31 08:21] LABS: Potassium 3.8 mmol/L (3.5-5.0); eGFR CKD-EPI 89.9 (>60)
[2021-10-31] MEDS: Cholecalciferol (VIT D3) 1,000 unit TAB PO SCH (08:55)
[2021-10-31] MEDS: Aspirin EC 81 mg TAB.EC (enteric coated) PO SCH (08:55)
[2021-11-01] MEDS: Enoxaparin 40 MG/0.4 ML SYR SUBCUT SCH (05:42)
[2021-11-01 07:05] LABS: Potassium 3.8 mmol/L (3.5-5.0); eGFR CKD-EPI 93.8 (>60)
[2021-11-01 07:48] LABS: ABS Lymphocytes 0.4 10^3/ul (1.0-4.8); ABS Monocytes 0.3 10^3/ul (0-0.8); ABS Neutrophils 0.9 10^3/ul (1.5-7.7); Eosinophil % 0.1 %; Hematocrit 35 % (42-52); Large Platelets Present; Lymphocyte % 23.6 %; Mean Corpuscular HGB Conc 35 g/dL (31-36); Mean Corpuscular Hemoglobin 33 pg (27-31); Mean Corpuscular Volume 96 fL (80-94); Mean Platelet Volume 10.6 fL (7.4-10.4); Nucleated Red Blood Cells % 0.1; Platelet Count 101 10^3/uL (150-450); Red Blood Count 3.61 10^6 /uL (4.18-5.48); Red Cell Distribution Width 15 % (10-15); White Blood Count 1.6 10^3/uL (3.5-10.8)
[2021-11-01] MEDS: Cholecalciferol (VIT D3) 1,000 unit TAB PO SCH (09:50)
[2021-11-01] MEDS: Aspirin EC 81 mg TAB.EC (enteric coated) PO SCH (09:51)
[2021-11-02] MEDS: Enoxaparin 40 MG/0.4 ML SYR SUBCUT SCH (04:49)
[2021-11-02 06:40] LABS: Hematocrit 35 % (42-52); Hemoglobin 11.9 g/dL (14.0-18.0); Mean Corpuscular HGB Conc 34 g/dL (31-36); Mean Corpuscular Hemoglobin 33 pg (27-31); Mean Corpuscular Volume 96 fL (80-94); Mean Platelet Volume 10.7 fL (7.4-10.4); Platelet Count 112 10^3/uL (150-450); Red Blood Count 3.65 10^6 /uL (4.18-5.48); Red Cell Distribution Width 16 % (10-15); White Blood Count 1.5 10^3/uL (3.5-10.8)
[2021-11-02 07:00] LABS: Calcium 8.1 mg/dL (8.6-10.3); Potassium 3.7 mmol/L (3.5-5.0); eGFR CKD-EPI 90.3 (>60)
[2021-11-02 08:25] LABS: ABS Lymphocytes 0.6 10^3/ul (1.0-4.8); ABS Monocytes 0.3 10^3/ul (0-0.8); ABS Neutrophils 0.7 10^3/ul (1.5-7.7); Lymphocyte % 36.5 %
[2021-11-02 09:01] LABS: Large Platelets Present
[2021-11-02] MEDS: Cholecalciferol (VIT D3) 1,000 unit TAB PO SCH (09:17)
[2021-11-02] MEDS: Aspirin EC 81 mg TAB.EC (enteric coated) PO SCH (09:18)
[2021-11-02 14:52] VITALS: BP 129/71
== END 2021-11-02 15:30 | disposition home or self-care (01) | DRG 178 ==
LOC: ED 15:58 → SUATTDRO 20:25 → EDHOLD 21:27 → MED 10-29 05:09
PROVIDERS: ADMIT Student in an Organized Health Care Education/Training Program; ATTEND Hospitalist

== ENCOUNTER 2021-11-05 11:01 | Inpatient (IN) ==
[2021-11-05 11:44] LABS: PCO2 Arterial 33 mmHg (35-45); PO2 Arterial 75 mmHg (80-100)
[2021-11-05 12:08] LABS: ABS Lymphocytes 0.3 10^3/ul (1.0-4.8); ABS Monocytes 0.2 10^3/ul (0-0.8); ABS Neutrophils 1.6 10^3/ul (1.5-7.7); Hematocrit 38 % (42-52); Hemoglobin 12.9 g/dL (14.0-18.0); Lymphocyte % 12.4 %; Mean Corpuscular HGB Conc 34 g/dL (31-36); Mean Corpuscular Hemoglobin 33 pg (27-31); Mean Corpuscular Volume 96 fL (80-94); Mean Platelet Volume 10.6 fL (7.4-10.4); Platelet Count 141 10^3/uL (150-450); Red Blood Count 3.98 10^6 /uL (4.18-5.48); Red Cell Distribution Width 16 % (10-15); White Blood Count 2.1 10^3/uL (3.5-10.8)
[2021-11-05 12:21] LABS: ALT 40 U/L (7-52); AST 55 U/L (13-39); Albumin 3.3 g/dL (3.2-5.2); Albumin/Globulin Ratio 1.1 (1-3); Alkaline Phosphatase 64 U/L (35-149); Anion Gap 7 mmol/L (2-11); Blood Urea Nitrogen 17 mg/dL (6-24); C Reactive Protein 103.56 mg/L (<8.01); CO2 Carbon Dioxide 28 mmol/L (22-32); Calcium 8.5 mg/dL (8.6-10.3); Chloride 98 mmol/L (101-111); Globulin 2.9 g/dL (2-4); Glucose 103 mg/dL (70-100); Potassium 3.8 mmol/L (3.5-5.0); Sodium 133 mmol/L (135-145); Total Protein 6.2 g/dL (6.4-8.9); eGFR CKD-EPI 80.4 (>60)
[2021-11-05] MEDS ORDERED: Iodixanol (CONTRAST) 320 MG/ML 100 ML SDV IV ONE (12:34)
[2021-11-05 12:57] LABS: Troponin I 0.05 ng/mL (<0.03)
[2021-11-05 15:22] LABS: Urine Appearance Clear; Urine Bacteria Absent (Absent); Urine Bilirubin Negative (Negative); Urine Blood Negative (Negative); Urine Color Yellow; Urine Glucose Negative (Negative); Urine Ketones Trace (Negative); Urine Nitrite Negative (Negative); Urine Protein 1+(30 mg/dL) (Negative); Urine Red Blood Cell Absent (Absent); Urine Urobilinogen Positive (Negative); Urine White Blood Cell Absent (Absent)
[2021-11-05 16:43] LABS: Urine Specific Gravity > 1.060 (1.002-1.030)
[2021-11-05] MEDS ORDERED: Ondansetron 4 mg VIAL 2 MG/ML 2 ml VIAL IV PRN (17:21)
[2021-11-05] MEDS ORDERED: Lactated Ringers 1000 ml BAG 1,000 ML IV ONE (17:31)
[2021-11-05] MEDS ORDERED: Remdesivir 100 mg Vial 200 MG in NS 0.9% 250 ml 210 ML IV ONE (17:36)
[2021-11-05 18:01] LABS: INR 1.2 (0.86-1.15)
[2021-11-05] MEDS: Enoxaparin 40 MG/0.4 ML SYR SUBCUT SCH (19:31)
[2021-11-05 21:32] LABS: Troponin I 0.04 ng/mL (<0.03)
[2021-11-06 07:40] LABS: Albumin 2.9 g/dL (3.2-5.2); Globulin 2.8 g/dL (2-4); Potassium 3.8 mmol/L (3.5-5.0); Total Bilirubin 0.7 mg/dL (0.2-1.0); Total Protein 5.7 g/dL (6.4-8.9); eGFR CKD-EPI 90.7 (>60)
[2021-11-06 08:04] LABS: INR 1.2 (0.86-1.15)
[2021-11-06 09:30] LABS: ABS Lymphocytes 0.3 10^3/ul (1.0-4.8); ABS Monocytes 0.2 10^3/ul (0-0.8); ABS Neutrophils 2.2 10^3/ul (1.5-7.7); Hematocrit 37 % (42-52); Hemoglobin 12.6 g/dL (14.0-18.0); Lymphocyte % 10.9 %; Mean Corpuscular HGB Conc 34 g/dL (31-36); Mean Corpuscular Hemoglobin 33 pg (27-31); Mean Corpuscular Volume 96 fL (80-94); Mean Platelet Volume 10.6 fL (7.4-10.4); Nucleated Red Blood Cells % 0.1; Platelet Count 127 10^3/uL (150-450); Red Blood Count 3.84 10^6 /uL (4.18-5.48); Red Cell Distribution Width 16 % (10-15); White Blood Count 2.7 10^3/uL (3.5-10.8)
[2021-11-06] MEDS: Cholecalciferol (VIT D3) 1,000 unit TAB PO SCH (09:30)
[2021-11-06] MEDS: Aspirin EC 81 mg TAB.EC (enteric coated) PO SCH (09:30)
[2021-11-06] MEDS ORDERED: Potassium Chloride LIQUID 20 MEQ/15 ML LIQUID PO ONE (15:26)
[2021-11-06 15:45] LABS: Magnesium 1.8 mg/dL (1.9-2.7)
[2021-11-06] MEDS ORDERED: Magnesium Sulfate 2 gm BAG 2 GM/50 ML BAG IVPB ONE (15:59)
[2021-11-06] MEDS: Enoxaparin 40 MG/0.4 ML SYR SUBCUT SCH (16:15)
[2021-11-06] MEDS: Remdesivir 100 mg Vial 100 MG in NS 0.9% 250 ml 230 ML IV SCH (21:14)
[2021-11-07 06:28] LABS: Hematocrit 37 % (42-52); Hemoglobin 12.5 g/dL (14.0-18.0); Mean Corpuscular HGB Conc 34 g/dL (31-36); Mean Corpuscular Hemoglobin 32 pg (27-31); Mean Corpuscular Volume 96 fL (80-94); Red Blood Count 3.85 10^6 /uL (4.18-5.48); Red Cell Distribution Width 16 % (10-15); White Blood Count 3.3 10^3/uL (3.5-10.8)
[2021-11-07 06:32] LABS: INR 1.29 (0.86-1.15)
[2021-11-07 06:40] LABS: Albumin 2.9 g/dL (3.2-5.2); Albumin/Globulin Ratio 1.1 (1-3); Calcium 7.8 mg/dL (8.6-10.3); Globulin 2.6 g/dL (2-4); Potassium 3.9 mmol/L (3.5-5.0); Total Bilirubin 0.7 mg/dL (0.2-1.0); Total Protein 5.5 g/dL (6.4-8.9); eGFR CKD-EPI 90.3 (>60)
[2021-11-07 06:43] LABS: ABS Lymphocytes 0.5 10^3/ul (1.0-4.8); ABS Monocytes 0.2 10^3/ul (0-0.8); ABS Neutrophils 2.6 10^3/ul (1.5-7.7); Large Platelets Present; Lymphocyte % 15.3 %; Mean Platelet Volume 10.1 fL (7.4-10.4); Platelet Count 141 10^3/uL (150-450)
[2021-11-07] MEDS: Cholecalciferol (VIT D3) 1,000 unit TAB PO SCH (10:42)
[2021-11-07] MEDS: Aspirin EC 81 mg TAB.EC (enteric coated) PO SCH (10:44)
[2021-11-07] MEDS: Enoxaparin 40 MG/0.4 ML SYR SUBCUT SCH (18:25)
[2021-11-07] MEDS: Remdesivir 100 mg Vial 100 MG in NS 0.9% 250 ml 230 ML IV SCH (20:46)
[2021-11-08 06:53] LABS: INR 1.39 (0.86-1.15)
[2021-11-08 07:04] LABS: Calcium 8.3 mg/dL (8.6-10.3); Globulin 2.9 g/dL (2-4); Total Bilirubin 0.8 mg/dL (0.2-1.0); Total Protein 5.9 g/dL (6.4-8.9); eGFR CKD-EPI 88.6 (>60)
[2021-11-08] MEDS: Cholecalciferol (VIT D3) 1,000 unit TAB PO SCH (10:27)
[2021-11-08] MEDS: Aspirin EC 81 mg TAB.EC (enteric coated) PO SCH (10:27)
[2021-11-08] MEDS: Enoxaparin 40 MG/0.4 ML SYR SUBCUT SCH (17:38)
[2021-11-08] MEDS: Remdesivir 100 mg Vial 100 MG in NS 0.9% 250 ml 230 ML IV SCH (20:22)
[2021-11-09 06:16] LABS: INR 1.42 (0.86-1.15)
[2021-11-09 06:24] LABS: ABS Lymphocytes 0.4 10^3/ul (1.0-4.8); ABS Monocytes 0.3 10^3/ul (0-0.8); ABS Neutrophils 3.2 10^3/ul (1.5-7.7); Eosinophil % 0.4 %; Hematocrit 36 % (42-52); Lymphocyte % 11.4 %; Mean Corpuscular HGB Conc 33 g/dL (31-36); Mean Corpuscular Hemoglobin 32 pg (27-31); Mean Corpuscular Volume 96 fL (80-94); Mean Platelet Volume 9.9 fL (7.4-10.4); Platelet Count 153 10^3/uL (150-450); Red Blood Count 3.75 10^6 /uL (4.18-5.48); Red Cell Distribution Width 16 % (10-15); White Blood Count 3.9 10^3/uL (3.5-10.8)
[2021-11-09 06:31] LABS: Albumin 2.7 g/dL (3.2-5.2); Calcium 7.9 mg/dL (8.6-10.3); Globulin 2.7 g/dL (2-4); Total Protein 5.4 g/dL (6.4-8.9)
[2021-11-09] MEDS: Cholecalciferol (VIT D3) 1,000 unit TAB PO SCH (10:21)
[2021-11-09] MEDS: Aspirin EC 81 mg TAB.EC (enteric coated) PO SCH (10:21)
[2021-11-09 11:59] VITALS: BP 115/66
== END 2021-11-09 15:30 | DRG 178 ==
LOC: ED 11:01 → EDHOLD 17:32 → MED 21:18
PROVIDERS: ADMIT Internal Medicine; ATTEND Internal Medicine

== ENCOUNTER 2021-11-09 13:30 | Inpatient (IN) ==
[2021-11-09] MEDS: Enoxaparin 40 MG/0.4 ML SYR SUBCUT SCH (18:01)
[2021-11-09] MEDS ORDERED: Remdesivir 100 mg Vial 100 MG in NS 0.9% 250 ml 230 ML IV SCH (21:00)
[2021-11-10 07:11] LABS: Hematocrit 35 % (42-52); Hemoglobin 11.9 g/dL (14.0-18.0); Mean Corpuscular HGB Conc 34 g/dL (31-36); Mean Corpuscular Hemoglobin 33 pg (27-31); Mean Corpuscular Volume 95 fL (80-94); Red Blood Count 3.68 10^6 /uL (4.18-5.48); Red Cell Distribution Width 15 % (10-15); White Blood Count 3.3 10^3/uL (3.5-10.8)
[2021-11-10 07:29] LABS: Albumin 2.6 g/dL (3.2-5.2); Calcium 7.8 mg/dL (8.6-10.3); Total Bilirubin 1.2 mg/dL (0.2-1.0)
[2021-11-10 07:35] LABS: Albumin/Globulin Ratio 1.1 (1-3); Globulin 2.3 g/dL (2-4); Total Protein 4.9 g/dL (6.4-8.9)
[2021-11-10 07:56] LABS: ABS Lymphocytes 0.4 10^3/ul (1.0-4.8); ABS Monocytes 0.3 10^3/ul (0-0.8); ABS Neutrophils 2.5 10^3/ul (1.5-7.7); Eosinophil % 0.4 %; Lymphocyte % 12.3 %; Mean Platelet Volume 10.5 fL (7.4-10.4); Nucleated Red Blood Cells % 0.1; Platelet Count 169 10^3/uL (150-450)
[2021-11-10] MEDS: Cholecalciferol (VIT D3) 1,000 unit TAB PO SCH (10:01)
[2021-11-10] MEDS: Aspirin EC 81 mg TAB.EC (enteric coated) PO SCH (10:01)
[2021-11-10] MEDS: Enoxaparin 40 MG/0.4 ML SYR SUBCUT SCH (17:25)
[2021-11-11] MEDS: Aspirin EC 81 mg TAB.EC (enteric coated) PO SCH (09:02)
[2021-11-11] MEDS: Cholecalciferol (VIT D3) 1,000 unit TAB PO SCH (09:02)
[2021-11-11] MEDS: Enoxaparin 40 MG/0.4 ML SYR SUBCUT SCH (18:01)
[2021-11-12] MEDS: Aspirin EC 81 mg TAB.EC (enteric coated) PO SCH (09:11)
[2021-11-12] MEDS: Cholecalciferol (VIT D3) 1,000 unit TAB PO SCH (09:11)
[2021-11-12] MEDS: Enoxaparin 40 MG/0.4 ML SYR SUBCUT SCH (17:30)
[2021-11-13 09:21] LABS: Hematocrit 34 % (42-52); Hemoglobin 11.3 g/dL (14.0-18.0); Mean Corpuscular HGB Conc 33 g/dL (31-36); Mean Corpuscular Hemoglobin 32 pg (27-31); Mean Corpuscular Volume 97 fL (80-94); Mean Platelet Volume 9.7 fL (7.4-10.4); Platelet Count 201 10^3/uL (150-450); Red Blood Count 3.52 10^6 /uL (4.18-5.48); Red Cell Distribution Width 16 % (10-15); White Blood Count 4.2 10^3/uL (3.5-10.8)
[2021-11-13] MEDS: Cholecalciferol (VIT D3) 1,000 unit TAB PO SCH (09:33)
[2021-11-13] MEDS: Aspirin EC 81 mg TAB.EC (enteric coated) PO SCH (09:33)
[2021-11-13 09:41] LABS: Albumin 2.8 g/dL (3.2-5.2); Albumin/Globulin Ratio 0.8 (1-3); Calcium 8.5 mg/dL (8.6-10.3); Globulin 3.3 g/dL (2-4); Total Bilirubin 1.7 mg/dL (0.2-1.0); Total Protein 6.1 g/dL (6.4-8.9); eGFR CKD-EPI 94.2 (>60)
[2021-11-13 09:50] LABS: ABS Lymphocytes 0.4 10^3/ul (1.0-4.8); ABS Monocytes 0.5 10^3/ul (0-0.8); ABS Neutrophils 3.2 10^3/ul (1.5-7.7); Eosinophil % 0.4 %; Lymphocyte % 10.7 %
[2021-11-13] MEDS: NS 0.9% 1000 ml BAG 1,000 ML IV SCH (14:25)
[2021-11-13 15:52] LABS: Urine Appearance Clear; Urine Bilirubin Negative (Negative); Urine Blood Negative (Negative); Urine Color Yellow; Urine Glucose Negative (Negative); Urine Ketones Negative (Negative); Urine Nitrite Negative (Negative); Urine Protein Negative (Negative); Urine Specific Gravity 1.015 (1.002-1.030); Urine Urobilinogen Positive (Negative)
[2021-11-13] MEDS: Enoxaparin 40 MG/0.4 ML SYR SUBCUT SCH (18:00)
[2021-11-14] MEDS: NS 0.9% 1000 ml BAG 1,000 ML IV SCH (04:30)
[2021-11-14 05:37] LABS: Direct Bilirubin 0.3 mg/dL (0.03-0.18); Indirect Bilirubin 1.1 mg/dL (0.3-1.0); Total Bilirubin 1.4 mg/dL (0.2-1.0)
[2021-11-14] MEDS: Aspirin EC 81 mg TAB.EC (enteric coated) PO SCH (09:15)
[2021-11-14] MEDS: Cholecalciferol (VIT D3) 1,000 unit TAB PO SCH (09:15)
[2021-11-14] MEDS: Enoxaparin 40 MG/0.4 ML SYR SUBCUT SCH (17:14)
[2021-11-15 06:30] LABS: Albumin 2.5 g/dL (3.2-5.2); Albumin/Globulin Ratio 0.8 (1-3); Potassium 3.8 mmol/L (3.5-5.0); Total Bilirubin 1.3 mg/dL (0.2-1.0); Total Protein 5.5 g/dL (6.4-8.9)
[2021-11-15] MEDS: Cholecalciferol (VIT D3) 1,000 unit TAB PO SCH (08:27)
[2021-11-15] MEDS: Aspirin EC 81 mg TAB.EC (enteric coated) PO SCH (08:27)
[2021-11-15] MEDS: Enoxaparin 40 MG/0.4 ML SYR SUBCUT SCH (18:06)
[2021-11-16] MEDS: Cholecalciferol (VIT D3) 1,000 unit TAB PO SCH (10:07)
[2021-11-16] MEDS: Aspirin EC 81 mg TAB.EC (enteric coated) PO SCH (10:07)
[2021-11-16] MEDS: Enoxaparin 40 MG/0.4 ML SYR SUBCUT SCH (17:27)
[2021-11-16] MEDS: Senna TAB 8.6 mg TAB PO PRN (19:56)
[2021-11-17 06:56] LABS: ABS Lymphocytes 0.6 10^3/ul (1.0-4.8); ABS Monocytes 0.6 10^3/ul (0-0.8); Eosinophil % 0.2 %; Hematocrit 32 % (42-52); Hemoglobin 10.9 g/dL (14.0-18.0); Lymphocyte % 17.7 %; Mean Corpuscular HGB Conc 34 g/dL (31-36); Mean Corpuscular Hemoglobin 33 pg (27-31); Mean Corpuscular Volume 96 fL (80-94); Mean Platelet Volume 9.4 fL (7.4-10.4); Nucleated Red Blood Cells % 0.1; Platelet Count 197 10^3/uL (150-450); Red Blood Count 3.36 10^6 /uL (4.18-5.48); Red Cell Distribution Width 16 % (10-15); White Blood Count 3.1 10^3/uL (3.5-10.8)
[2021-11-17 07:15] LABS: Albumin 2.6 g/dL (3.2-5.2); Albumin/Globulin Ratio 0.8 (1-3); Calcium 8.5 mg/dL (8.6-10.3); Globulin 3.4 g/dL (2-4); Potassium 3.6 mmol/L (3.5-5.0); Total Bilirubin 0.9 mg/dL (0.2-1.0); eGFR CKD-EPI 95.1 (>60)
[2021-11-17] MEDS: Aspirin EC 81 mg TAB.EC (enteric coated) PO SCH (09:31)
[2021-11-17] MEDS: Cholecalciferol (VIT D3) 1,000 unit TAB PO SCH (09:32)
[2021-11-17] MEDS: Enoxaparin 40 MG/0.4 ML SYR SUBCUT SCH (19:00)
[2021-11-18] MEDS: Aspirin EC 81 mg TAB.EC (enteric coated) PO SCH (09:33)
[2021-11-18] MEDS: Cholecalciferol (VIT D3) 1,000 unit TAB PO SCH (09:33)
[2021-11-18] MEDS: Enoxaparin 40 MG/0.4 ML SYR SUBCUT SCH (18:58)
[2021-11-19] MEDS: Aspirin EC 81 mg TAB.EC (enteric coated) PO SCH (08:59)
[2021-11-19] MEDS: Cholecalciferol (VIT D3) 1,000 unit TAB PO SCH (09:00)
[2021-11-19] MEDS: Enoxaparin 40 MG/0.4 ML SYR SUBCUT SCH (19:44)
[2021-11-20] MEDS: Aspirin EC 81 mg TAB.EC (enteric coated) PO SCH (10:11)
[2021-11-20] MEDS: Cholecalciferol (VIT D3) 1,000 unit TAB PO SCH (10:11)
[2021-11-20] MEDS: Enoxaparin 40 MG/0.4 ML SYR SUBCUT SCH (18:13)
[2021-11-21] MEDS: Aspirin EC 81 mg TAB.EC (enteric coated) PO SCH (10:04)
[2021-11-21] MEDS: Cholecalciferol (VIT D3) 1,000 unit TAB PO SCH (10:05)
[2021-11-21] MEDS: Enoxaparin 40 MG/0.4 ML SYR SUBCUT SCH (18:14)
[2021-11-21] MEDS: Senna TAB 8.6 mg TAB PO PRN (20:23)
[2021-11-22] MEDS: Aspirin EC 81 mg TAB.EC (enteric coated) PO SCH (10:08)
[2021-11-22] MEDS: Cholecalciferol (VIT D3) 1,000 unit TAB PO SCH (10:08)
[2021-11-22] MEDS: Enoxaparin 40 MG/0.4 ML SYR SUBCUT SCH (17:37)
[2021-11-23] MEDS: Aspirin EC 81 mg TAB.EC (enteric coated) PO SCH (09:37)
[2021-11-23] MEDS: Cholecalciferol (VIT D3) 1,000 unit TAB PO SCH (09:37)
[2021-11-23] MEDS: Enoxaparin 40 MG/0.4 ML SYR SUBCUT SCH (17:24)
[2021-11-24 07:55] LABS: ABS Monocytes 0.4 10^3/ul (0-0.8); ABS Neutrophils 1.6 10^3/ul (1.5-7.7); Eosinophil % 1.2 %; Hematocrit 35 % (42-52); Hemoglobin 11.9 g/dL (14.0-18.0); Lymphocyte % 32.3 %; Mean Corpuscular HGB Conc 34 g/dL (31-36); Mean Corpuscular Hemoglobin 32 pg (27-31); Mean Corpuscular Volume 96 fL (80-94); Mean Platelet Volume 9.3 fL (7.4-10.4); Platelet Count 297 10^3/uL (150-450); Red Blood Count 3.66 10^6 /uL (4.18-5.48); Red Cell Distribution Width 16 % (10-15)
[2021-11-24 08:12] LABS: Albumin 3.2 g/dL (3.2-5.2); Albumin/Globulin Ratio 0.8 (1-3); Calcium 8.8 mg/dL (8.6-10.3); Globulin 3.8 g/dL (2-4); Potassium 4.1 mmol/L (3.5-5.0); Total Bilirubin 0.7 mg/dL (0.2-1.0); eGFR CKD-EPI 91.8 (>60)
[2021-11-24] MEDS: Aspirin EC 81 mg TAB.EC (enteric coated) PO SCH (09:33)
[2021-11-24] MEDS: Cholecalciferol (VIT D3) 1,000 unit TAB PO SCH (09:33)
[2021-11-24] MEDS: Enoxaparin 40 MG/0.4 ML SYR SUBCUT SCH (18:08)
[2021-11-25] MEDS: Cholecalciferol (VIT D3) 1,000 unit TAB PO SCH (09:57)
[2021-11-25] MEDS: Aspirin EC 81 mg TAB.EC (enteric coated) PO SCH (09:57)
[2021-11-25] MEDS: Enoxaparin 40 MG/0.4 ML SYR SUBCUT SCH (17:23)
[2021-11-26 05:55] VITALS: BP 122/77
[2021-11-26] MEDS: Cholecalciferol (VIT D3) 1,000 unit TAB PO SCH (09:58)
[2021-11-26] MEDS: Aspirin EC 81 mg TAB.EC (enteric coated) PO SCH (09:58)
== END 2021-11-26 16:37 | disposition home health service (06) | DRG 56 ==
LOC: PMRU 15:54
PROVIDERS: ADMIT Physical Medicine & Rehabilitation; ATTEND Physical Medicine & Rehabilitation